=== PATIENT | male | born 1990 | race Caucasian/White ===

== ENCOUNTER 2018-03-10 15:52 | Inpatient (IN) | payer OTHER ==
[~2018-03-10] VITALS: Ht 180.3 cm; Wt 78.2 kg
[2018-03-10] MEDS ORDERED: ADVIL LIQUI-GE200 M1 PO (17:25)
--- NOTE | 2018-03-10 18:54 | ED PSYCHIATRIC COMPLAINT ---
History of Present Illness General Chief Complaint: ETOH/Drug Related Complaint Stated Complaint: DETOX FROM HEROINE ? SI Source: patient Exam Limitations: no limitations Vital Signs & Intake/Output Vital Signs & Intake/Output Vital Signs Date Time Temp Pulse Resp B/P B/P Pulse O2 O2 Flow FiO2 Mean Ox Delivery Rate 03/10 1557 97.1 82 18 163/92 98 Room Air Allergies Coded Allergies: NO KNOWN ALLERGIES (02/21/11) Reconcile Medications Ibuprofen (Advil Liqui-Gels) 200 MG CAPSULE 4 CAP PO DAILY PAIN/INFLAMMATION (Reported) Triage Note: 27 YEAR OLD MALE TO ER REQUEST ING HELP TO STOP USING IV HEROINE, LAST USED A COUPLE OF HOURS AGO, DENIES ETOH , BUT STATES THAT HE DOES BY [employer] OFF THE [address]RE[address] , LAST TOOK YESTERDAY. LAST DETOX [facility] A COUPLE OF MONTHS AGO , AND LAST WEEK WAS IN [place], AND WAS SUPOSSED TO GO TO [place] TODAY DROVE THERE TODAY AND THEY HAD NO BED FOR HIM. DENIES SI/HI Triage Nurses Notes Reviewed? yes HPI: Patient presents for evaluation of heroine and benzodiazepine abuse with depression. Patient states he needs help with his drug abuse because he feels it is slowly killing him. He admits to having problems with his liver and heart. He denies other drug abuse such as marijuana or cocaine and denies use of alcohol. He does complain of depression having lost his house and girlfriend recently. (Sonya WATERS,George Levy) Past History Travel History Traveled to [place] past 21 day No Medical History Any Pertinent Medical History? see below for history Neurological: NONE EENT: NONE Cardiovascular: NONE Respiratory: NONE Gastrointestinal: NONE Hepatic: hepatitis C Renal: NONE Musculoskeletal: NONE Psychiatric: NONE Endocrine: NONE Blood Disorders: NONE Cancer(s): NONE PATIENT ACCESS ASSOCIATE/Reproductive: NONE Surgical History Surgical History: non-contributory Psychosocial History What is your primary language Polish Tobacco Use: Current Daily Use Daily Tobacco Use Amount/Type: => 5 Cigarettes daily ETOH Use: denies use Illicit Drug Use: heroin, benzodiazepines Family History Hx Contributory? No (Sonya WATERS,George Levy) Review of Systems Review of Systems Constitutional: Reports: no symptoms. EENTM: Reports: no symptoms. Respiratory: Reports: no symptoms. Cardiovascular: Reports: no symptoms. GI: Reports: no symptoms. Genitourinary: Reports: no symptoms. Musculoskeletal: Reports: no symptoms. Skin: Reports: no symptoms. Neurological/Psychological: Reports: see HPI. Hematologic/Endocrine: Reports: no symptoms. Immunologic/Allergic: Reports: no symptoms. All Other Systems: Reviewed and Negative (George Hassan MD) Physical Exam Physical Exam General Appearance: SEE BELOW Neurological/Psychiatric: SEE BELOW Comments: Gen.: Well-nourished, well-developed, no acute respiratory distress. Head: Normocephalic, atraumatic. Eyes: Normal inspection bilaterally Ears: Normal inspection bilaterally Nose: Normal inspection Throat/mouth : Moist mucosa Neck: Supple, full range of motion, no goiter Heart: Regular rate and rhythm, no murmurs rubs or gallops Lungs: Clear to auscultation bilaterally with normal air entry Chest: Nontender Back: Normal range of motion Abdomen: Soft, nontender, nondistended, normal bowel sounds Extremities: Normal range of motion grossly, equal radial pulses, no cyanosis clubbing or edema Neurologic: Cranial nerves grossly intact, speech is clear Skin: warm and dry Psychiatric: Calm, cooperative, no apparent delusions or hallucinations, depressed affect SAD PERSONS Done? patient not suicidal (Sonya WATERS,George Levy) Progress Differential Diagnosis: DRUG ABUSE, DEPRESSION, ANXIETY, PERSONALITY DISORDER Plan of Care: Orders Procedure Date/time Status Continuous Observation Monitor 03/11 0700 Active Continuous Observation Monitor 03/11 0300 Active Continuous Observation Monitor 03/10 2300 Active Continuous Observation Monitor 03/10 190 Active Patient Safety Monitor 03/10 1852 Active URINE DRUG SCREEN FOR ER ONLY 03/10 1852 Active TSH REFLEX 03/10 1852 Complete ETHANOL 03/10 1852 Complete COMPREHENSIVE METABOLIC PANEL 03/10 1852 Complete CBC WITHOUT DIFFERENTIAL 03/10 1852 Complete ED CRISIS PSYCH CONSULT 03/10 1852 Active Current Medications Sig/John Start time Last Medication Dose Stop Time Status Admin Diltiazem HCl 10 MG ONCE ONE 03/10 1915 CAN (Cardizem) 03/10 1916 Laboratory Tests 03/10/18 2004: Anion Gap 11, Estimated GFR > 60, BUN/Creatinine Ratio 14.4, Glucose 97, Calcium 9.0, Total Bilirubin 0.4, AST 43, ALT 87 H, Alkaline Phosphatase 56, Total Protein 6.4, Albumin 3.8, Globulin 2.6, Albumin/Globulin Ratio 1.5, TSH &T3 & Free T4 Intrp 0.656, CBC w Diff NO MAN DIFF REQ, RBC 4.25 L, MCV 82.9, MCH 28.2 , MCHC 34.0, RDW 12.9, MPV 7.8, Gran % 47.8, Lymphocytes % 37.2, Monocytes % 10.6 H, Eosinophils % 3.9, Basophils % 0.5, Absolute Granulocytes 3.4, Absolute Lymphocytes 2.7, Absolute Monocytes 0.8 H, Absolute Eosinophils 0.3, Absolute Basophils 0, Serum Alcohol < 10.0 Comments: I feel the patient although not actively suicidal is at risk of self-harm given his admitted drug abuse, depression, the loss of his home and breakup with his girlfriend. 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 (Sonya WATERS,George Levy) Departure Departure Disposition: STILL A PATIENT Clinical Impression Primary Impression: Depression Secondary Impressions: Benzodiazepine abuse, Heroin abuse Referrals: Patient Has No Primary Care Dr (PCP/Family) Departure Forms: Customer Survey General Discharge Information (Sonya WATERS,George Levy) Departure Time of Disposition: 2139 Condition: Stable Psych Admission Note Psychiatric Admission: I have seen and evaluated KOLE GARCIA. I have also reviewed all the pertinent lab results and diagnostic results. KOLE GARCIA will be admitted to our inpatient Psychiatric unit for treatment and care. (Rios WATERS,Odell)
--- NOTE | 2018-03-10 20:13 | ED PSY CRISIS COLLATERAL NOTE ---
See Addendum Collateral Note Collateral Note Family/Inform/Jackie Contacts: 03/10/18 @ 7:30pm Crisis called and left a message for Pt's mother, Charu Oliver ([phone]). At this time, still awaiting a call back.
[2018-03-10 20:17] LABS: ABSOLUTE BASOPHIL COUNT 0 /CUMM (0.0-0.2); ABSOLUTE EOSINOPHIL COUNT 0.3 /CUMM (0.0-0.7); ABSOLUTE GRANULOCYTE CT 3.4 /CUMM (1.4-6.5); ABSOLUTE LYMPH COUNT 2.7 /CUMM (1.2-3.4); ABSOLUTE MONOCYTE COUNT 0.8 /CUMM (0.10-0.60); BASOPHIL % 0.5 % (0.0-2.0); EOSINOPHIL % 3.9 % (0-5); GRANULOCYTE % 47.8 % (42.2-75.2); HEMATOCRIT 35.3 % (42-52); MEAN CORPUSCULAR HGB 28.2 PG (27.0-31.0); MEAN CORPUSCULAR VOLUME 82.9 FL (80.0-94.0); MEAN PLATELET VOLUME 7.8 FL (7.4-10.4); PLATELET COUNT 214 /CUMM (130-400); RBC DISTRIBUTION WIDTH 12.9 % (11.5-14.5); RED BLOOD CELL CT 4.25 /CUMM (4.70-6.10); WHITE BLOOD CELL COUNT 7.2 /CUMM (4.8-10.8)
--- NOTE | 2018-03-10 21:14 | ED PSYCH CRISIS CONSULTATION ---
Crisis Consult Basic Assessment Date of Consult: 03/10/18 Responsible Person/Accompanied By: n/a Insurance Authorization: Insurance #1: Insurance name: KAMILLA RAYMUNDO Phone number: Policy number: [id number] Group number: Authorization number: ED Provider: Patient's ED Provider: George Hassan MD Primary Care Physician: Patient's PCP: Patient Has No Primary Care Dr PCP's Phone Number: Current Psychiatrist: none Chief Complaint: ETOH/Drug Related Complaint Patient's Quote: "I've had enough of everything, nothing is going right" Present Illness: Pt is a 27 year old male who presents in the ED asking for detox from Heroin and reports of depression. Pt reports multiple stressors in the past several weeks. Pt reports he lost his apartment and has been couch surfing with friends. He reports his drug use led to him losing his apartment. Pt also broke up with his girlfriend. Pt states that his car broke down and therefore he was also fired from his job. Pt reports SI in the past couple of days with the plan to overdose on drugs. Pt has a history of suicide attempts, last being in Summer 2016. Pt reports he used heroin to attempt suicide and ended up at [facility]. Pt denies SI/HI at this time, but reports he has been having ongoing thoughts for at least the last week. Pt reports feeling helpless, hopeless and trapped. Pt states he has limited supports as he has lost contact with most of his family, including his mother. Pt has 2 children, 7 year old twins, whom he currently has no contact with. Pt states that his depression is 9/10 and anxiety 9/10 with 10 being the most severe. Pt reports his mood is depressed, he is not sleeping, not eating and having a hard time concentrating. He denies AH/VH, but reports he has had AH in the past. Pt feels unable to agree to safety plan at this time. He reports feeling highly impulsive lately. Pt is an IV heroin user, using 3 bags per day. Pt also reports using Xanax (4mg) per day. He has been in substance abuse treatment on and off for several years. He reports that today, he was supposed to go to [facility] for a 45 day program, but a mistake was made and they gave his bed away. Pt states feeling very depressed about losing his spot. Pt was admitted to [facility] in 2010, but has no prior psychiatric inpatient hospitalizations. He is not currently in treatment and is not prescribed any psychotropic medication. Please see collateral note. C-SSRS completed: Pt identified the following risk factors: suicide attempt in lifetime, wishing to be in the past week, SI with method in the past week, recent loss (apartment, girlfriend, job), homelessless, feeling isolated or alone, hopelessness, helplessness, feeling trapped, feeling depressed, impulsive , substance use, severe anxiety, perceives himself as a burden, method for suicide (drugs), and family history of suicide (2nd cousin). Pt identified the following protective factors: identifies reasons for living, responsibility to others. Patient's Address: [address] [place] [address] Other Phone Number: Who Do You Live With? Other (see notes) (pt currently at diff friends ) Family/Informants Interviewed: Crisis spoke with pt's mother, Charu Oliver ) please see collaterall note Allergies - Coded Allergies: NO KNOWN ALLERGIES (02/21/11) Current Medications - Scheduled Medications Ibuprofen (Advil Liqui-Gels) 200 MG CAPSULE 4 CAP PO DAILY PAIN/INFLAMMATION (Reported) Entered as Reported by Catalina Pascual on 03/10/18 6374 Laboratory Results: Laboratory Tests 03/10/182003: Anion Gap 11, Estimated GFR > 60, BUN/Creatinine Ratio 14.4, Glucose 97, Calcium 9.0, Total Bilirubin 0.4, AST 43, ALT 87 H, Alkaline Phosphatase 56, Total Protein 6.4, Albumin 3.8, Globulin 2.6, Albumin/Globulin Ratio 1.5, TSH &T3 & Free T4 Intrp Pending, CBC w Diff NO MAN DIFF REQ, RBC 4.25 L, MCV 82.9, MCH 28.2, MCHC 34.0, RDW 12.9, MPV 7.8, Gran % 47.8, Lymphocytes % 37.2, Monocytes % 10.6 H, Eosinophils % 3.9, Basophils % 0.5, Absolute Granulocytes 3.4, Absolute Lymphocytes 2.7, Absolute Monocytes 0.8 H, Absolute Eosinophils 0.3, Absolute Basophils 0, Serum Alcohol < 10.0 Past History Past Medical History Neurological: NONE EENT: NONE Cardiovascular: NONE Respiratory: NONE Gastrointestinal: NONE Hepatic: hepatitis C Renal: NONE Musculoskeletal: NONE Psychiatric: NONE Endocrine: NONE Blood Disorders: NONE Cancer(s): NONE CHILD CARE LEADER/Reproductive: NONE Past Surgical History Surgical History: non-contributory Psychosocial History Strengths/Capabilities: Pt is seeking out help and willing to engage in treatment. Physical Limitations (Interventions): Pt reports Pericarditis and acute liver failure. Psychiatric Treatment History Psych Treatment Psychiatric Treatment Yes Inpatient Treatment Yes Outpatient Treatment Yes Location of Treatment [facility], outpatient as youth Reason for Treatment Depression, anxiety, poly substance use Dates of Treatment CPS - 2010, outpatient when 16 years old Response to Treatment Pt in the past has not followed through with aftercare Diagnosis by History: Anxiety d/o Depression Substance Use/Abuse History Drug Use/Abuse 1 Substances Used/Abused Yes Substance Used/Abused Benzodiazepines First Use 19 years old Last Used 2 days ago How much used/taken 4mg How often on and off since 19 years old For how long on and off since 19 years old Route of use orally Drug Use/Abuse 2 Substances Used/Abused Yes Substance Used/Abused Heroin First Use 19 years old Last Used noon today How much used/taken 3 bags How often daily For how long on and off since 19 years old Route of use Injecting Substance Abuse Treatment Substance Abuse Treatment Past Substance Abuse TX Yes Inpatient Treatment Yes Outpatient Treatment Yes Location of Treatment [facility] Reason for Treatment poly substance use Dates of Treatment [facility] last year. Response to Treatment pt has periods of sobriety Current Mental Status Mental Status Orientation: Person, Place, Situation Affect: Anxious, Depressed, Hopeless Speech: WNL Neuro-vegetative: Appetite Decreased, Energy Decreased, Sleep Disturbance Appearance Appearance- Dress/Hygiene: Pt is dressed in blue hosptial scrubs. He appears to have adequate hygeine. He has visable tattoos. Behaviors Thought Process: WNL Thought Content: WNL Memory: WNL Insight: Fair SI/HI Risk Assessment Past Suicidal Ideation/Attempts Yes Current Suicidal Ideation/Att No (not currently) Past Homicidal Ideation/Att: No Current Homicidal Ideation/Attempts No Degree of Intent: Plan (in past few days), Thoughts/No Intent Danger To: Self Gravely Disabled: Poor Impulse Control Risk Factors: access to lethal means, chronic/serious med cond., high anxiety/ distress, history of suicide atmpts, SA/MH hospitalized, substance abuse, isolate/no social support, poor impulse control, male, limited support Lethality Ratin PTSD Checklist PTSD Done? 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 Cohen Date Disposition Established: 03/10/18 Time Disposition Established: 2114 Plan for Disposition - Modality: Inpatient Psychiatry Facility: [facility] Rationale for Disposition: Crisis spoke with Dr. Cohen who agrees that pt meets criteria for inpatient hospitalization at this time. Pt reports feeling hopeless, helpless and trapped. He has recently experienced the loss of his apartment, job and girlfriend in the past month. He has experienced SI in the past week with the plan to use drug overdose. He has a history of suicide attempt summer 2016. Type of IP Admission: Voluntary Referrals Patient Has No Primary Care Dr (PCP/Family)
--- NOTE | 2018-03-10 21:48 | IP CRISIS DIAG ASSESS PSYCH ---
See Addendum Diagnostic Assessment Basic Assessment Insurance Authorization: Insurance #1: Insurance name: KAMILLA RAYMUNDO Phone number: Policy number: [id number] Group number: Authorization number: [facility] website was down on 03/10/18. This va underwriter tired to obtain auth several times. Primary Care Physician: Patient's PCP: Patient Has No Primary Care Dr PCP's Phone Number: Patient's Quote: "I've had enough of everything, nothing is going right" Present Illness: Pt is a 27 year old male who presents in the ED asking for detox from Heroin and reports of depression. Pt reports multiple stressors in the past several weeks. Pt reports he lost his apartment and has been couch surfing with friends. He reports his drug use led to him losing his apartment. Pt also broke up with his girlfriend. Pt states that his car broke down and therefore he was also fired from his job. Pt reports SI in the past couple of days with the plan to overdose on drugs. Pt has a history of suicide attempts, last being in Summer 2016. Pt reports he used heroin to attempt suicide and ended up at [facility]. Pt denies SI/HI at this time, but reports he has been having ongoing thoughts for at least the last week. Pt reports feeling helpless, hopeless and trapped. Pt states he has limited supports as he has lost contact with most of his family, including his mother. Pt has 2 children, 7 year old twins, whom he currently has no contact with. Pt states that his depression is 9/10 and anxiety 9/10 with 10 being the most severe. Pt reports his mood is depressed, he is not sleeping, not eating and having a hard time concentrating. He denies AH/VH, but reports he has had AH in the past. Pt feels unable to agree to safety plan at this time. He reports feeling highly impulsive lately. Pt is an IV heroin user, using 3 bags per day. Pt also reports using Xanax (4mg) per day. He has been in substance abuse treatment on and off for several years. He reports that today, he was supposed to go to [facility] for a 45 day program, but a mistake was made and they gave his bed away. Pt states feeling very depressed about losing his spot. Pt was admitted to [facility] in 2010, but has no prior psychiatric inpatient hospitalizations. He is not currently in treatment and is not prescribed any psychotropic medication. Please see collateral note. C-SSRS completed: Pt identified the following risk factors: suicide attempt in lifetime, wishing to be in the past week, SI with method in the past week, recent loss (apartment, girlfriend, job), homelessless, feeling isolated or alone, hopelessness, helplessness, feeling trapped, feeling depressed, impulsive , substance use, severe anxiety, perceives himself as a burden, method for suicide (drugs), and family history of suicide (2nd cousin). Pt identified the following protective factors: identifies reasons for living, responsibility to others. Patient's Address: [address] [place] [address] Other Phone Number: Who Do You Live With? Other (see notes) (pt currently at diff friends ) Feel Safe Where You Live? No Feel Safe in Your Relationship No If No, Please Elaborate: Pt has lost touch with most of his family Marital Status: single Do You Have Children? Yes Ages? 7 year old twins Primary Language? French Language(s) Spoken At Home: French Family/Informants Interviewed: Crisis spoke with pt's mother, Charu Oliver ( [phone]) please see collaterall note Allergies - Coded Allergies: NO KNOWN ALLERGIES (02/21/11) Current Medications - Scheduled Medications Ibuprofen (Advil Liqui-Gels) 200 MG CAPSULE 4 CAP PO DAILY PAIN/INFLAMMATION (Reported) Entered as Reported by Catalina Pascual on 03/10/18 2535 Consequences of Psych Med Use: Pt abuses Xanax, which he is not prescribed. Lab Results: Laboratory Tests 03/10/18 2004: Anion Gap 11, Estimated GFR > 60, BUN/Creatinine Ratio 14.4, Glucose 97, Calcium 9.0, Total Bilirubin 0.4, AST 43, ALT 87 H, Alkaline Phosphatase 56, Total Protein 6.4, Albumin 3.8, Globulin 2.6, Albumin/Globulin Ratio 1.5, TSH &T3 & Free T4 Intrp 0.656, CBC w Diff NO MAN DIFF REQ, RBC 4.25 L, MCV 82.9, MCH 28.2 , MCHC 34.0, RDW 12.9, MPV 7.8, Gran % 47.8, Lymphocytes % 37.2, Monocytes % 10.6 H, Eosinophils % 3.9, Basophils % 0.5, Absolute Granulocytes 3.4, Absolute Lymphocytes 2.7, Absolute Monocytes 0.8 H, Absolute Eosinophils 0.3, Absolute Basophils 0, Serum Alcohol < 10.0 Toxicology Screen Completed? No Results: positive Symptoms of Use: Pt reports using Heroin and Xanax Past History Past Medical History Medical History: Pericarditis, acute liver failure Past Surgical History Surgical History unobtainable Abuse/Trauma History Trauma History/Current Trauma: Denies Legal History Current Legal Status: none Have you ever been arrested? Yes Pending Court Dates: none reported Director Maternal Child none Psychosocial History Strengths/Capabilities: Pt is seeking out help and willing to engage in treatment. Physical Limitations (Interventions): Pt reports Pericarditis and acute liver failure. Psychiatric Treatment History Psych Treatment Psychiatric Treatment Yes Inpatient Treatment Yes Outpatient Treatment Yes Location of Treatment [facility], outpatient as youth Reason for Treatment Depression, anxiety, poly substance use Dates of Treatment CPS - 2010, outpatient when 16 years old Response to Treatment Pt in the past has not followed through with aftercare Diagnosis by History: Anxiety d/o Depression Risk Factors: access to lethal means, chronic/serious med cond., high anxiety/ distress, history of suicide atmpts, SA/MH hospitalized, substance abuse, isolate/no social support, poor impulse control, male, limited support Substance Use/Abuse History Drug Use/Abuse minimum 12mo Hx 1 Substances Used/Abused Yes Substance Used/Abused Heroin First Use 19 years old Last Used noon today How much used/taken 3 bags How often daily For how long on and off since 19 years old Route of use Injecting Drug Use/Abuse minimum 12mo Hx 2 Substances Used/Abused Yes Substance Used/Abused Benzodiazepines (Xanax) First Use 19 years old Last Used 2 days ago How much used/taken 4mg How often on and off since 19 For how long on and off since 19 Route of use orally Substance Abuse Treatment Substance Abuse Treatment Past Substance Abuse TX Yes Inpatient Treatment Yes Outpatient Treatment Yes Location of Treatment [place] [place] Reason for Treatment poly substance use Dates of Treatment [facility] last year. Response to Treatment pt has periods of sobriety Sexual History Sexually Active Yes Sexual Orientation Heterosexual Sexual Concerns: none reported Education History Highest Level of Education: high school/GED Preferred Learning Style: visual, auditory, experiential Current Mental Status Mental Status Orientation: Person, Place, Situation Affect: Anxious, Depressed, Hopeless Speech: WNL Neuro-vegetative: Appetite Decreased, Energy Decreased, Sleep Disturbance Appearance Appearance- Dress/Hygiene: Pt is dressed in blue hosptial scrubs. He appears to have adequate hygeine. He has visable tattoos. Behaviors Thought Process: WNL Thought Content: WNL Memory: WNL Insight: Fair SI/HI Risk Assessment - Minimum 6mo History- Past Suicidal Ideation/Attempts Yes Current Suicidal Ideation/Att No (not currently) Past Homicidal Ideation/Att: No Current Homicidal Ideation/Attempts No Degree of Intent: Plan (in past few days), Thoughts/No Intent Danger To: Self Gravely Disabled: Poor Impulse Control Risk Factors: access to lethal means, chronic/serious med cond., high anxiety/ distress, history of suicide atmpts, SA/MH hospitalized, substance abuse, isolate/no social support, poor impulse control, male, limited support Lethality Ratin Needs/Init TX Plan/Goals: Pt should particiapte in group, individual and family therapy and well as meet with the psychiatrist. 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
[2018-03-11] VITALS (12 sets, daily range): BP systolic 89–153; BP diastolic 57–89
--- NOTE | 2018-03-11 11:15 | Cons- Medical ---
General Information and HPI Consulting Request Date of Consult: 03/11/18 Requested By: Rodrigo Mcdonald MD Reason for Consult: Medical H & P Source of Information: patient, old records History of Present Illness: 27-year-old male past medical history of IV drug abuse, questionable hypertension and hepatitis C he was here with depression and requesting opiate detox. Patient says he was hospitalized once in his life for elevated liver enzymes and was diagnosed with hepatitis C he said he was subsequently incarcerated and his viral load was very low. He is interested in pursuing treatment for hep C once he is discharged. He denies nausea vomiting diarrhea, no bright red blood per rectum, no hematemesis, no melena, no chest pain,no shortness of breath and no complaints. He says he's been diagnosed with hypertension in the past and was using clonidine when necessary but he hasn't been using anything consistently. Allergies/Medications Allergies: Coded Allergies: NO KNOWN ALLERGIES (02/21/11) Home Med List: Ibuprofen (Advil Liqui-Gels) 200 MG CAPSULE 4 CAP PO DAILY PAIN/INFLAMMATION (Reported) Current Medications: Current Medications Sig/John Start time Last Medication Dose Route Stop Time Status Admin Acetaminophen 650 MG Q6P PRN 03/11 1015 AC PO Acetaminophen 500 MG Q6P PRN 03/10 2230 DC PO Al Hydroxide/Mg 30 ML Q4-6 PRN PRN 03/11 1015 AC Hydroxide PO Baclofen 10 MG Q6P PRN 03/11 1015 AC 03/11 PO 1108 Benztropine Mesylate 1 MG Q6P PRN 03/11 1015 AC PO Benztropine Mesylate 1 MG Q6P PRN 03/11 1015 AC IM Clonidine 0.1 MG Q6P PRN 03/11 1015 AC PO Clonidine 0.1 MG TID 03/11 1011 AC PO Clonidine 0.1 MG .STK-MED ONE 03/11 0043 DC PO 03/11 0044 Clonidine 0.1 MG Q6-PRN PRN 03/10 2230 DC 03/11 PO 0044 Dicyclomine HCl 20 MG Q6P PRN 03/11 1015 AC PO Diltiazem HCl 10 MG ONCE ONE 03/10 191 CAN IV PUSH 03/10 191 Gabapentin 300 MG Q6P PRN 03/11 1015 AC PO Haloperidol 5 MG Q6P PRN 03/11 1015 AC PO Haloperidol 5 MG Q6P PRN 03/11 1015 AC IM Hydroxyzine HCl 25 MG Q6-PRN PRN 03/10 2245 DC PO Loperamide HCl 2 MG Q3P PRN 03/10 2230 AC PO Lorazepam 2 MG Q6P PRN 03/11 1015 AC IM Lorazepam 2 MG Q2 HRS NEEDED PRN 03/10 2230 DC PO Lorazepam 1 MG Q2 HRS NEEDED PRN 03/10 223 DC 03/11 PO 0953 Magnesium Hydroxide 30 ML AT BEDTIME NEED.. 03/11 1015 AC PO Multivitamins 1 TAB DAILY 03/11 1011 AC PO Trazodone HCl 50 MG AT BEDTIME NEED.. 03/11 101 AC PO Review of Systems Review of Systems Constitutional: Denies: no symptoms, chills, diaphoresis, fever, malaise. Cardiovascular: Denies: no symptoms, chest pain, edema, orthopena. Respiratory: Denies: no symptoms, cough, hemoptysis, orthopnea. GI: Denies: no symptoms, bloating, constipation, diarrhea. Genitourinary: Denies: no symptoms, discharge, dysuria, frequency. Musculoskeletal: Denies: no symptoms, back pain. 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 Exam & Diagnostic Data Last 24 Hrs of Vital Signs/I&O Vital Signs Date Time Temp Pulse Resp B/P B/P Pulse O2 O2 Flow FiO2 Mean Ox Delivery Rate 03/11 1008 98.1 68 137/71 03/11 0855 96.5 67 111/63 03/11 0851 96.5 67 111/63 03/11 0414 65 89/58 03/11 0203 52 95/58 03/11 0044 59 128/57 03/11 0039 98.2 59 128/57 03/11 0007 98.2 59 128/57 03/10 2204 98.1 67 18 126/71 98 03/10 2203 97.4 67 18 126/71 98 03/10 1557 97.1 82 18 163/92 98 Room Air Intake & Output 03/11 1600 03/11 0800 03/11 0000 Intake Total Output Total Balance Patient 78.245 kg Weight Physical Exam General Appearance: well developed/nourished, no apparent distress, alert, awake Head: atraumatic, normal appearance Eyes: Bilateral: normal appearance, PERRL, EOMI. Ears, Nose, Throat: normal pharynx, normal ENT inspection, hearing grossly normal Neck: normal inspection, supple, full range of motion Respiratory: normal breath sounds, chest non-tender, no respiratory distress Cardiovascular: regular rate/rhythm Gastrointestinal: normal bowel sounds, soft, non-tender, no organomegaly Back: normal inspection, normal range of motion Extremities: normal inspection, normal capillary refill, normal range of motion, no edema Neurologic/Psych: no motor/sensory deficits, awake, alert, oriented x 3, normal gait Other Physical Findings: A shunt is awake alert oriented, cranial nerves III-12 are intact, motor and sensory grossly are intact. No cerebellar signs and reflexes are 2+ and symmetric, gait is normal. Patient has multiple tattoos and in his left upper extremity in the antecubital fossa there is one way and that slightly thickened and scarred but no evidence of active infection. Last 24 Hrs of Labs/Aryan: Laboratory Tests 03/10/182206: Urine Opiates Screen > 4000.00 H, Methadone Screen 574 H, Barbiturate Screen < 60, Ur Phencyclidine Scrn < 6.00, Amphetamines Screen < 100, U Benzodiazepines Scrn < 85, Urine Cocaine Screen > 1000 H, Urine Cannabis Screen < 5.00 03/10/182003: Anion Gap 11, Estimated GFR > 60, BUN/Creatinine Ratio 14.4, Glucose 97, Calcium 9.0, Total Bilirubin 0.4, AST 43, ALT 87 H, Alkaline Phosphatase 56, Total Protein 6.4, Albumin 3.8, Globulin 2.6, Albumin/Globulin Ratio 1.5, TSH &T3 & Free T4 Intrp 0.656, CBC w Diff NO MAN DIFF REQ, RBC 4.25 L, MCV 82.9, MCH 28.2 , MCHC 34.0, RDW 12.9, MPV 7.8, Gran % 47.8, Lymphocytes % 37.2, Monocytes % 10.6 H, Eosinophils % 3.9, Basophils % 0.5, Absolute Granulocytes 3.4, Absolute Lymphocytes 2.7, Absolute Monocytes 0.8 H, Absolute Eosinophils 0.3, Absolute Basophils 0, Serum Alcohol < 10.0 Assessment/Plan Assessment/Plan 27-year-old male past medical history of hepatitis C, active tobacco use and questionable hypertension who is here with depressive symptoms and requesting opiate detox. U tox is positive for cocaine and opiates and that treatment would be per psych. I will order nicotine patch as requested by the patient. His ALT is mildly elevated at this point and he doesn't need any active intervention. Please give him a referral to the [facility] practice clinic at [address] [place] [address] in [place] on discharge for primary care and hep C follow- up. Problem List: 1. Polysubstance abuse 2. Heroin abuse 3. Depression Consult Acknowledgment - Thank you for your consult request.
--- NOTE | 2018-03-11 13:06 | SOCIAL WORKER SOCIAL HX PSYCH ---
Social History Basic Assessment Insurance Authorization: Insurance #1: Insurance name: [employer] Phone number: Policy number: [id number] Group number: Authorization number: Curr Source of Income/Entitlements: unemployment Primary Care Physician: Patient's PCP: Patient Has No Primary Care Dr PCP's Phone Number: Present Problem: Pt is a 27 year old male who presents in the ED asking for detox from Heroin and reports of depression. Pt reports multiple stressors in the past several weeks. Pt reports he lost his apartment and has been couch surfing with friends. He reports his drug use led to him losing his apartment. Pt also broke up with his girlfriend. Pt states that his car broke down and therefore he was also fired from his job. Pt reports SI in the past couple of days with the plan to overdose on drugs. Pt has a history of suicide attempts, last being in Summer 2016. Pt reports he used heroin to attempt suicide and ended up at [facility]. Pt denies SI/HI at this time, but reports he has been having ongoing thoughts for at least the last week. Pt reports feeling helpless, hopeless and trapped. Pt states he has limited supports as he has lost contact with most of his family, including his mother. Pt has 2 children, 7 year old twins, whom he currently has no contact with. Pt states that his depression is 9/10 and anxiety 9/10 with 10 being the most severe. Pt reports his mood is depressed, he is not sleeping, not eating and having a hard time concentrating. He denies AH/VH, but reports he has had AH in the past. Pt feels unable to agree to safety plan at this time. He reports feeling highly impulsive lately. Pt is an IV heroin user, using 3 bags per day. Pt also reports using Xanax (4mg) per day. He has been in substance abuse treatment on and off for several years. He reports that today, he was supposed to go to [place] for a 45 day program, but a mistake was made and they gave his bed away. Pt states feeling very depressed about losing his spot. Pt was admitted to [facility] in 2010, but has no prior psychiatric inpatient hospitalizations. He is not currently in treatment and is not prescribed any psychotropic medication. Primary Language? Lithuanian Language(s) Spoken At Home: Lithuanian Living Situation Other Living Arrangement: Homeless Feel Safe Where You Are Living Yes ("i feel safe but im homeless") Feel Safe in Relationships? 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 Yes Explain: " My relationship with my parents wasnt great, we still barely talk now" Mother's Age (Current/): 52 Relationship w/Mother: "there is no relationship" Father's Age (Current/): 45 () Relationship w/Father: "he but even before that we never had a relationship" Any Sibling(s)? Yes Sibling's Gender(s)/Age(s): male Sibling 1: (25) Relationship w/Sibling(s): "ok" Relationship w/Friends: "i dont have any" Family Psych/Sub Abuse/Add Hx: "i dont remeber" Abuse/Trauma History Trauma History/Current Trauma: Denies History of Trauma/Abuse Treatment? No Abuse/Trauma Treatment: None Legal History Legal Guardian/Address/Phone: Self Current Legal Status: none Pending Court Dates: "no" Have you ever been arrested Yes Number of Arrests: 7 Hx of Juvenile Legal Charges? Yes If Yes: "criminal mischeif" Hx of Adult Legal Charges? Yes If Yes: "i dont rmeber but i went to long-term in 2014" List/Date Most Recent Lgl Chgs: Arrested before admission Chgs/Dts/Incarcerations/Sentnc Robbery, assult, burglary Civil Proceedings: "None" Domestic Relations Court: "no" Child Protective Serv Involvmnt "no" Debone Supervisor none Psychosocial History Primary Support System: sibling(s) ("Maybe my brother") Strengths/Capabilities: Pt is seeking out help and willing to engage in treatment. Weaknesses: Pt has very small support system, and minimizes the severity of current situation Physical Limitations (Interventions): Pt reports Pericarditis and acute liver failure. Last Physical: 1 week ago History of Seizures? No History of Blackouts? No ADL Limitations: None [place]/Social/Peer Relations "i dont have any" Meaningful Activities: "i watch sports" Childhood Hinduism: no restoration stated Current Mormonism Affiliation: no restoration stated Is Spirituality Important to You? No Patient's Ethnicity: Zambian Cultural/Ethnic Issues: None Are There Developmental Issues? No Milestones Achieved: fine motor, gross motor Psychiatric Treatment History Psych Treatment Inpatient Treatment Yes Outpatient Treatment Yes Location of Treatment [facility], outpatient as youth Reason for Treatment Depression, anxiety, poly substance use Dates of Treatment CPS - 2010, outpatient when 16 years old Response to Treatment Pt in the past has not followed through with aftercare Treatment of Prior Episodes: Prior CPS admissions Diagnosis: Anxiety d/o Depression Risk Factors: access to lethal means, chronic/serious med cond., high anxiety/ distress, history of Violence, history of suicide atmpts, SA/MH hospitalized, substance abuse, isolate/no social support, poor impulse control, male, limited support Substance Use/Abuse History Drug Use/Abuse:Min 12 mo hx Substance Used/Abused Benzodiazepines (Xanax) First Use 19 years old Last Used 2 days ago How much used/taken 4mg How often on and off since 19 For how long on and off since 19 Route of use orally Have Had Periods of Sobriety? Yes (18 months) Explain: "i was sober 18 months then i went back to getting high" Relapse History? Yes Explain: "i relapsed after my 18 months sober" Have You Ever Attended AA? No Do You Attend AA Currently? No Do You Have a Sponsor? No Other Community Resources Used: NA Symptoms of Use: Pt reports using Heroin and Xanax Substance Abuse Treatment Substance Abuse Treatment Inpatient Treatment Yes Outpatient Treatment Yes Location of Treatment [facility] Reason for Treatment poly substance use Dates of Treatment [place] last year. Response to Treatment pt has periods of sobriety Sexual History Sexually Active Yes # of partners 0 ("i dont know") Sexual Orientation Heterosexual Use of Protection No Sexual Concerns: none reported Education History Highest Level of Education: some college Highest Grade Completed: HS diploma Vocational Year Completed: None Number of College Years: 1 College Degree/Major: None Other Degree(s): None Preferred Learning Style: visual, auditory, experiential HX of Learning Difficulties: None reported Barriers to Learning: None reported Special Communication Needs: None reported Employment History Employment Unemployed Not in Labor Force: "not working" Vocation/Occupational Hx: "I had 1 job a few years ago" No. 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 No Current Mental Status Mental Status Orientation: Person, Place, Situation Affect: Anxious, Depressed, Hopeless Speech: WNL Neuro-vegetative: Appetite Decreased, Energy Decreased, Sleep Disturbance Appearance Appearance- Dress/Hygiene: Pt is dressed in blue hosptial scrubs. He appears to have adequate hygeine. He has visable tattoos. Behaviors Thought Process: WNL Thought Content: WNL Memory: WNL Insight: Fair SI/HI Risk Assessment Past Suicidal Ideation/Attempts Yes Current Suicidal Ideation/Att No (not currently) Past Homicidal Ideation/Att: No Current Homicidal Ideation/Attempts No Degree of Intent: Plan (in past few days), Thoughts/No Intent Danger To: Self Gravely Disabled: Poor Impulse Control Risk Factors: Hx of suicide attempt(s), Hx of violence, Isolated/no social suppor, Lack of concern outcome, Male, Poor impulse control, Substance Abuse Lethality Ratin - Conclusion and Recommendations for treatment - and discharge planning Summary: Pt minimizes severity of opiate dependancy and HX of legal troubles. Pt is a poor historian and tends to change information depending on the interviewer. Pt has a very small support system and does not communicate with any family memeber at the moment.
--- NOTE | 2018-03-11 14:52 | SOCIAL WORKER PROG NOTE PSYCH ---
Social Work Progress Note Progress Note Pt admits he is not suicidal, he states I have nothing and no place to go "I lost everything" i.e. apartment, relationships, job. Pt states he wants to go to rehab for drug addiction. Pt states he had been to [place] a few times while he was under 26 and had private insurance thru his parents. Pt complains of feeling withdrawl symptoms. Pt exhibits lack of insight and sensationalizing some of the things that led him to be here.
--- NOTE | 2018-03-11 16:03 | CPS PROVIDER INIT ASMT PSYCH ---
Psychiatric Admission Field Artillery Cannoneer's Note Reviewed: Yes Patient Seen and Examined: Yes Identifying Information: 27 yo WM admitted 03/10/18 on a voluntary basis, referred by ER. Chief Complaint: Substance use, multiple losses, SI. Reaction to Hospitalization: "I feel safe." Complains of withdrawal. History of Present Illness Onset of Illness: About 2 weeks. Circumstances Leading to Admission: Reports he recently had a "string of bad luck the last couple of weeks, due to drugs. I'm sick of it." Reports he completed detox at [facility] last week. States he presented to [facility] for admission but lost bed there. Claims they destroyed his Suboxone prescription as "contraband." Reports he lost apartment, car, girlfriend and job. Problem(s) Justifying Need for Admission: SI, substance withdrawal. Other HPI: Three week hx of: poor sleep poor appetite (claims to have not eaten for 4 days straight) very poor energy Reports he lost 27#/1 month. Case and treatment plan discussed in team meeting. Staff reports that the patient is denying SI. May have some withdrawal symptoms. Quiet. Past Psychiatric History Past Diagnosis(es)- if any: Paris I: Substance-induced mood disorder, depressed. Opiate dependence. Opiate withdrawal. Alcohol abuse. Paris II: Personality disorder, NOS, with borderline anti-social traits. Paris III: None. Paris IV: Relationship issues. Financial issues. Paris V: GAF on admission was 30, GAF on discharge was 60. Past Precipitating Factors- if any: Evaluation and treatment of suggestive reports of depression with suicidal thoughts as well as detox from opiates. - Include inpatient and outpatient treatment Treatment History: Not in outpatient tx. CPS admit in 2010. History of Suicide Attempts or Gestures Overdose with heroin in 2013. Substance Abuse History: Tobacco at 1 ppd. No alcohol. MJ 1x/week. Cocaine 1x/week. Heroin 10-15 bags/day. Last heroin use yesterday. Reports using 4-[address] benzodiazepines a day. Seeing Dr. Hernandez for Suboxone. Detoxed last week at [facility]. Prior detox at [facility]. ?treatment at [facility] and [facility]. Urine drug screen 03/10/18 positive for cocaine, methadone and op/morphine, negative for buprenorphine. Allergies: Coded Allergies: NO KNOWN ALLERGIES (02/21/11) Home Med List: Suboxone 04/01 b.i.d. Reports he lats took it Thursday or Thursday. - Include any medical condition(s) that may - impact the patient's recovery/remission Past Medical History: Hx pericarditis and acute liver failure, per crisis note. 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 Substance Use: Mother alcohol. Father crack. Father from cocaine toxicity when patient was 18 yo. Father had VA/MVA. Suicides: A maternal male second cousin with bone cancer suicided by GSW. Social History Living Situation: Homeless. Was living in [place] but gave up apartment 3 weeks ago. Significant Relationships (family/friends): Reports father from cocaine toxicity, myocardial infarction and motor vehicle accident when the patient was 18 years old. Reports mother from pancreatic cancer 2 years ago. trail construction worker documented having a conversation with the patient's mother. Has 25 yo brother. from . Patient has 7-year-old twin daughters who live in [place] with their mother. Girlfriend of 5 years broke up with patient a couple of days ago. Education: 1 year at [employer]. 1 semester at [employer]. 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 Legal: Not asked. Past arrest(s) per crisis admission note. Healthly Behaviors Screening Tobacco Screening Tobacco Use from ED Docu: Current Daily Use Daily Tobacco Use Amount/Type: => 5 Cigarettes daily - If tobacco counseling indicated - the following topics are required. - #1 Recognizing dangerous situations. - #2 Coping Skills. - #3 Basic information about quitting. Status of Tobacco Cessation Counseling: #1, #2 AND #3 Completed Cessation Med Status Nicotine Patch Ordered Alcohol Screening - ETOH screen POS if BAL >=80 or Audit-C>= M4/F3 Audit-C Score from Diag Assess: 2 Blood Alcohol Level: Laboratory Tests 03/10 2004 Toxicology Serum Alcohol (<10 MG/DL) < 10.0 Alcohol Use Screening Results: Neg per Audit C &/or BAL - If ETOH counseling indicated - the following topics are required. - #1 Express concern about the patient's - drinking at unhealthy levels, include informing - of national norms for moderate drinking: - men <= 14 drinks/week, max 4 drinks/occasion - women <= 7 drinks/week, max 3 drinks/occasion - #2 Providing feedback, including linking alcohol to - negative physical effects (liver injury, hypertension) - negative emotional effects (relationship problems and - depression) - negative occupational consequences (reduced work - performance) - #3 Advising the patient to abstain from alcohol or - to drink below national norms for moderate drinking - (as listed above). Status of ETOH Use Counseling: N/A B/C NO ETOH Use Metabolic Screening - Screen if on a Neuroleptic Medication - Metabolic screening should include: - Blood Pressure, BMI, Glucose or Hgb A1c, & a - Lipid profile from within the past 365 days. Metabolic Screening ([x]) Not Applicable, patient not on a neuroleptic. OR () Patient on a neuroleptic(s) . Enter below results for Hemoglobin A1C, and lipid panel if obtained during the last 365 days. BMI: 24.000 Blood Pressure: 123/71 Laboratory Results From [facility] (If applicable): Exam and Plan Mental Status Examination Ambulation Status: Gait WNL. Appearance: Dressed in T-shirt and pants, bearded, has multiple tattoos. Attitude towards examiner: Calm, polite and cooperative. Psychomotor activity: Jiggling legs. Behavior: Unremarkable. Quality of speech: Normal in volume, rate and tone. Affect: Calm and depressed. Mood: Reports feeling hopeless and depressed. Rates sad mood 7/10 and anxiety like 7/10. Feels helpless, worthless and guilty. Suicidal Ideation: Denies active suicidal ideation. Endorses passive suicidal ideation. Gives a safety promise for here. Homicidal Ideation: Denies homicidal ideation. Hallucinations: Denies auditory and visual hallucinations. Paranoid/Delusional Material: Denies paranoid ideation and magical dennis. Difficulties with thought organization: None. Insight: Fair. Judgment: Poor. Orientation: Oriented 3 except gives the date as 03/10/18. Cognition: Grossly intact. Memory Function: Grossly intact. Estimate of intellectual functioning: Average. Assets/Strengths Patient Identified Assets/Strengths: "I'm not sure." Impression/Plan Impression and Plan: The patient is a 27-year-old white male who reports multiple losses. He presented with worsening mood and suicidal ideation in the context of substance use and reportedly having been turned away from [facility]. - Include all active medical diagnosis that require tx DSM 5 Diagnosis(es): Substance-induced mood disorder. Opioid use disorder. Cocaine use disorder. Benzodiazepine use disorder. - Initial Tx Plan for Active Psych & Medical Conditions Treatment Plan: The patient will be monitored on the unit for safety, opiate and benzodiazepine withdrawal and mood disorder. We will treat the patient with a clonidine, baclofen, Bentyl and Suboxone detox. CIWA-triggered Ativan is available for benzodiazepine withdrawal. Additional information is needed from collaterals. Anticipate once clinically stable, that the patient will be discharged to an inpatient rehab if possible, otherwise to an IOP. - Factors that would help patient function - in a less restrictive setting. Factors: Not suicidal.
--- NOTE | 2018-03-12 08:29 | SOCIAL WORKER PROG NOTE PSYCH ---
Social Work Progress Note Progress Note Met with Yair this morning. He stated he has no SI/HI, no AH/VH, he wants a rehab. Signed CARITO's for [facility], [facility], Sherrie. He reports he is homeless. He has no one he can stay with. He said he has no one he can do a family meeting with. He is worried [facility] may have a warrant - checked the Judical CT site no warrant. He stated his last arrest was January 2018 for [place] [address], he had a recent incident where he stole more things and is concerned. He agreedt o [facility]. He is refusing to call 211 for a retirement bed. Informed him to call [facility] admissions to do a phone screening (Fax clinical AFTER he gets on waitlist). He states he wants to "change his life and stay sober." Faxed clinical to Jeremi Acevedo [place] and [facility] and [facility].
[2018-03-12 08:31] VITALS: BP 128/66
[2018-03-12 08:33] VITALS: BP 128/66
[2018-03-12 12:05] VITALS: BP 118/65
[2018-03-12 12:15] VITALS: BP 118/65
--- NOTE | 2018-03-12 16:07 | CP SOUTH PROGRESS NOTE PSYCH ---
Psych (Inpt) Progress Note Progress Note Include the following elements, when applicable: Involvement in the active treatment of the patient with behavioral observations of the patient and the patient's response to the treatment. Review of the ongoing treatment process in the context of the treatment plan. Indication of how multi-disciplinary staff members are carrying out the treatment plan. Plans for future interventions and recommendations for revision of the treatment plan. Liaison with other physicians/providers. Progress Note: Case and treatment plan discussed in team meeting. Staff reports that the patient is denying SI. The patient was suspected of drug use with a peer on the unit last evening. Both were placed in scrubs, their rooms were searched and they had drug screens. There is no clear evidence that this patient used. 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 Patient seen at 11:37 a.m. States he is okay. Jiggling legs. Denies having used drugs. I asked him to clarify conflicting data about mother. States mother is not in his life but is dying on the streets. Affect is calm and blunted. Reports mood is very anxious. Agrees to increase prn gabapentin to 600 mg. "I need a program." Anxiety ~9/10. Sad 7/10. Feels hopeless, helpless, worthless and guilty. Denies active and passive SI, HI, AH, VH and PI. Appetite: fair. Energy: poor. IMPRESSION: Slow progress. Continue present treatment plan. I have ordered a (rapid) Suboxone taper that will end on Thursday morning. Anticipate discharge on Thursday. Rehab placement remains problematic.
[2018-03-12 16:20] VITALS: BP 121/68
[2018-03-12 20:33] VITALS: BP 137/77
[2018-03-13] VITALS (8 sets, daily range): BP systolic 118–142; BP diastolic 54–72
--- NOTE | 2018-03-13 11:20 | CP SOUTH PROGRESS NOTE PSYCH ---
Psych (Inpt) Progress Note Progress Note Include the following elements, when applicable: Involvement in the active treatment of the patient with behavioral observations of the patient and the patient's response to the treatment. Review of the ongoing treatment process in the context of the treatment plan. Indication of how multi-disciplinary staff members are carrying out the treatment plan. Plans for future interventions and recommendations for revision of the treatment plan. Liaison with other physicians/providers. Progress Note: Pt notes "I don't need anything; I don't have anything to talk about." Denies SI or HI. Denies psychotic sx. Current Medications Sig/John Start time Last Medication Dose Route Stop Time Status Admin Acetaminophen 650 MG Q6P PRN 03/11 1015 AC PO Al Hydroxide/Mg 30 ML Q4-6 PRN PRN 03/11 1015 AC Hydroxide PO Baclofen 10 MG Q6P PRN 03/11 1015 AC 03/13 PO 0923 Benztropine Mesylate 1 MG Q6P PRN 03/11 1015 AC PO Benztropine Mesylate 1 MG Q6P PRN 03/11 1015 AC IM Buprenorphine/ 1 TAB BID@0800,1700 03/13 1700 AC Naloxone SL 03/15 0801 Buprenorphine/ 2 TAB BID@0800,1700 03/12 1700 DC 03/13 Naloxone SL 03/13 0801 0753 Clonidine 0.05 MG BID 03/14 0900 AC PO 03/15 0901 Clonidine 0.05 MG FOUR TIMES A DAY 03/12 1800 AC 03/13 PO 03/13 2355 0015 Clonidine 0.05 MG Q6P PRN 03/12 1615 AC PO Clonidine 0.1 MG Q6P PRN 03/11 1015 DC PO Clonidine 0.1 MG TID 03/11 1011 DC 03/12 PO 1424 Dicyclomine HCl 20 MG Q6P PRN 03/11 1015 AC PO Gabapentin 600 MG Q6P PRN 03/12 1145 AC PO Gabapentin 300 MG Q6P PRN 03/11 1015 DC 03/11 PO 2138 Haloperidol 5 MG Q6P PRN 03/11 1015 AC PO Haloperidol 5 MG Q6P PRN 03/11 1015 AC IM Loperamide HCl 2 MG Q3P PRN 03/10 2230 AC PO Lorazepam 2 MG Q2 HRS NEEDED PRN 03/11 1330 AC PO Lorazepam 1 MG Q2 HRS NEEDED PRN 03/11 1330 AC PO Lorazepam 2 MG Q6P PRN 03/11 1015 AC IM Magnesium Hydroxide 30 ML AT BEDTIME NEED.. 03/11 1015 AC PO Multivitamins 1 TAB DAILY 03/11 1011 AC 03/13 PO 0922 Nicotine 14 MG DAILY 03/11 1115 AC 03/13 TOP 0752 Trazodone HCl 50 MG AT BEDTIME NEED.. 03/11 1015 AC PO Laboratory Tests 03/11 03/10 2158 2207 Toxicology Urine Opiates Screen (>2000 NG/ML) > 4000.00 H > 4000.00 H Buprenorphine & Metab (NEGATIVE) NEGATIVE Methadone Screen (>300 NG/ML) 127 574 H Barbiturate Screen (>200 NG/ML) < 60 < 60 Ur Phencyclidine Scrn (>25 NG/ML) < 6.00 < 6.00 Amphetamines Screen (>1000 NG/ML) < 100 < 100 U Benzodiazepines Scrn (>200 NG/ML) < 85 < 85 Urine Cocaine Screen (>300 NG/ML) 235 > 1000 H Urine Cannabis Screen (>50 NG/ML) < 5.00 < 5.00 03/10 2004 Chemistry Sodium (137 - 145 mmol/L) 139 Potassium (3.5 - 5.1 mmol/L) 4.2 Chloride (98 - 107 mmol/L) 98 Carbon Dioxide (22 - 30 mmol/L) 30 Anion Gap (5 - 16) 11 BUN (9 - 20 mg/dL) 13 Creatinine (0.7 - 1.2 mg/dL) 0.9 Estimated GFR (>60 ml/min) > 60 BUN/Creatinine Ratio (7 - 25 %) 14.4 Glucose (65 - 99 mg/dL) 97 Calcium (8.4 - 10.2 mg/dL) 9.0 Total Bilirubin (0.2 - 1.3 mg/dL) 0.4 AST (17 - 59 U/L) 43 ALT (21 - 72 U/L) 87 H Alkaline Phosphatase (< 127 U/L) 56 Total Protein (6.3 - 8.2 g/dL) 6.4 Albumin (3.5 - 5.0 g/dL) 3.8 Globulin (1.9 - 4.2 gm/dL) 2.6 Albumin/Globulin Ratio (1.1 - 2.2 %) 1.5 TSH &T3 &Free T4 Intrp (0.27 - 4.20 uIU/mL) 0.656 Hematology CBC w Diff NO MAN DIFF REQ WBC (4.8 - 10.8 /CUMM) 7.2 RBC (4.70 - 6.10 /CUMM) 4.25 L Hgb (14.0 - 18.0 G/DL) 12.0 L Hct (42 - 52 %) 35.3 L MCV (80.0 - 94.0 FL) 82.9 MCH (27.0 - 31.0 PG) 28.2 MCHC (33.0 - 37.0 G/DL) 34.0 RDW (11.5 - 14.5 %) 12.9 Plt Count (130 - 400 /CUMM) 214 MPV (7.4 - 10.4 FL) 7.8 Gran % (42.2 - 75.2 %) 47.8 Lymphocytes % (20.5 - 51.1 %) 37.2 Monocytes % (1.7 - 9.3 %) 10.6 H Eosinophils % (0 - 5 %) 3.9 Basophils % (0.0 - 2.0 %) 0.5 Absolute Granulocytes (1.4 - 6.5 /CUMM) 3.4 Absolute Lymphocytes (1.2 - 3.4 /CUMM) 2.7 Absolute Monocytes (0.10 - 0.60 /CUMM) 0.8 H Absolute Eosinophils (0.0 - 0.7 /CUMM) 0.3 Absolute Basophils (0.0 - 0.2 /CUMM) 0 Toxicology Serum Alcohol (<10 MG/DL) < 10.0 Vital Signs Date Time Temp Pulse Resp B/P B/P Pulse O2 O2 Flow FiO2 Mean Ox Delivery Rate 03/13 0929 97.8 68 118/54 03/13 0922 68 118/54 03/13 0805 97.8 68 118/54 03/13 0015 97.4 55 18 137/77 03/12 2033 97.4 55 137/77 03/12 1620 64 121/68 03/12 1620 64 121/68 03/12 1424 96 118/65 03/12 1215 96 118/65 03/12 1205 96 118/65 MSE Appearance: as stated age Speech : nl rate, rhythm, volume and prosody Behavior: cooperative Motor: no psychomotor agitation or retardation Mood : fine Affect : non-labile, anxious, irritable, appropriate, constricted Thought process: linear and goal directed Thought content : no delusions or paranoia Perceptions: denied AVHs, denied SI or HI Insight: poor Judgment: poor A/P: Pt with unspecified depression with improved mood. Continue current medication regimen Encourage integration into the milieu
[2018-03-14] VITALS (8 sets, daily range): BP systolic 116–140; BP diastolic 55–71
--- NOTE | 2018-03-14 11:01 | CP SOUTH PROGRESS NOTE PSYCH ---
Psych (Inpt) Progress Note Progress Note Include the following elements, when applicable: Involvement in the active treatment of the patient with behavioral observations of the patient and the patient's response to the treatment. Review of the ongoing treatment process in the context of the treatment plan. Indication of how multi-disciplinary staff members are carrying out the treatment plan. Plans for future interventions and recommendations for revision of the treatment plan. Liaison with other physicians/providers. Progress Note: Pt notes that he is "alright" today. Did want to discuss a SE he had with hadol at [facility] ?years ago, erections (?priapism). Redirected. Requested nicotine gum. Denies SI or HI. Current Medications Sig/John Start time Last Medication Dose Route Stop Time Status Admin Acetaminophen 650 MG .STK-MED ONE 03/13 2053 DC PO 03/13 205 Acetaminophen 650 MG Q6P PRN 03/11 1015 AC PO Al Hydroxide/Mg 30 ML Q4-6 PRN PRN 03/11 1015 AC Hydroxide PO Baclofen 10 MG Q6P PRN 03/11 1015 AC 03/13 PO 0923 Benztropine Mesylate 1 MG Q6P PRN 03/11 1015 AC PO Benztropine Mesylate 1 MG Q6P PRN 03/11 1015 AC IM Buprenorphine/ 1 TAB BID@0800,1700 03/14 0800 AC 03/14 Naloxone SL 03/15 0801 0938 Buprenorphine/ 1 TAB 2100 03/13 2100 DC 03/13 Naloxone SL 03/13 2101 2146 Buprenorphine/ 1 TAB BID@0800,1700 03/13 1700 DC Naloxone 03/15 0801 Clonidine 0.05 MG BID 03/14 0900 AC PO 03/15 0901 Clonidine 0.05 MG FOUR TIMES A DAY 03/12 1800 DC 03/13 PO 03/13 2355 2054 Clonidine 0.05 MG Q6P PRN 03/12 1615 AC PO Dicyclomine HCl 20 MG Q6P PRN 03/11 1015 AC PO Gabapentin 600 MG Q6P PRN 03/12 1145 AC 03/13 PO 1626 Haloperidol 5 MG Q6P PRN 03/11 1015 AC PO Haloperidol 5 MG Q6P PRN 03/11 1015 AC IM Ibuprofen 400 MG ONCE ONE 03/13 2145 DC 03/13 PO 07/14 2146 2145 Loperamide HCl 2 MG Q3P PRN 03/10 2230 AC PO Lorazepam 2 MG Q2 HRS NEEDED PRN 03/11 1330 AC PO Lorazepam 1 MG Q2 HRS NEEDED PRN 03/11 1330 AC PO Lorazepam 2 MG Q6P PRN 03/11 1015 AC IM Magnesium Hydroxide 30 ML AT BEDTIME NEED.. 03/11 1015 AC PO Multivitamins 1 TAB DAILY 03/11 1011 AC 03/14 PO 0937 Nicotine 2 MG Q2P PRN 03/14 1100 AC PO Nicotine 14 MG DAILY 03/11 1115 AC 03/13 TOP 0752 Trazodone HCl 50 MG AT BEDTIME NEED.. 03/11 1015 AC 03/14 PO 0003 Laboratory Tests 03/11 215 Toxicology Urine Opiates Screen (>2000 NG/ML) > 4000.00 H Methadone Screen (>300 NG/ML) 127 Barbiturate Screen (>200 NG/ML) < 60 Ur Phencyclidine Scrn (>25 NG/ML) < 6.00 Amphetamines Screen (>1000 NG/ML) < 100 U Benzodiazepines Scrn (>200 NG/ML) < 85 Urine Cocaine Screen (>300 NG/ML) 235 Urine Cannabis Screen (>50 NG/ML) < 5.00 Vital Signs Date Time Temp Pulse Resp B/P B/P Pulse O2 O2 Flow FiO2 Mean Ox Delivery Rate 03/14 0838 97.3 72 130/69 03/14 0759 97.3 72 130/69 03/13 2054 80 142/72 03/13 2002 99.1 80 142/72 03/13 195 99.1 80 142/72 03/13 1608 64 134/60 03/13 1602 64 134/60 03/13 1236 55 121/71 03/13 1230 55 121/71 MSE Appearance: as stated age Speech : nl rate, rhythm, volume and prosody Behavior: cooperative Motor: no psychomotor agitation or retardation Mood : alright Affect : non-labile, anxious, irritable, appropriate, constricted Thought process: linear and goal directed Thought content : no delusions or paranoia Perceptions: denied AVHs, denied SI or HI Insight: poor Judgment: poor A/P: Pt with unspecified depression with improved mood; underlying personality characteristics leading to intermittent inappropriate behaviors, though redirectable. Continue current medication regimen, added nicotine gum Encourage integration into the milieu
[2018-03-15 07:37] VITALS: BP 142/78
[2018-03-15 08:36] VITALS: BP 142/78
--- NOTE | 2018-03-15 09:48 | Patient Discharge Instructions ---
Psych Discharge Inst General Discharge Information Reason for Admission: Suicidal ideation, substance withdrawal. Psy Discharge Primary Diag+ Substance-induced mood disorder Psy Discharge Secondary Diag+ Opioid use disorder Cocaine use disorder Benzodiazepine use d/o Anemia Transminitis Summary Tests/Major Procedures Lab ALT 87 U/L H 03/10/182003 AST 43 U/L 03/10/182003 BUN 13 mg/dL 03/10/182003 Calcium 9.0 mg/dL 03/10/182003 Carbon Dioxide 30 mmol/L 03/10/182003 Chloride 98 mmol/L 03/10/182003 Creatinine 0.9 mg/dL 03/10/182003 Estimated GFR > 60 ml/min 03/10/182003 Glucose 97 mg/dL 03/10/182003 Potassium 4.2 mmol/L 03/10/182003 Sodium 139 mmol/L 03/10/182003 TSH &T3 &Free T4 Intrp 0.656 uIU/mL 03/10/182003 Absolute Monocytes 0.8 /CUMM H 03/10/182003 Hct 35.3 % L 03/10/182003 Hgb 12.0 G/DL L 03/10/182003 Monocytes % 10.6 % H 03/10/182003 Plt Count 214 /CUMM 03/10/182003 RBC 4.25 /CUMM L 03/10/182003 WBC 7.2 /CUMM 03/10/182003 Buprenorphine & Metab NEGATIVE 03/10/182206 Urine Cocaine Screen > 1000 NG/ML H 03/10/182206 Urine Cocaine Screen 235 NG/ML 03/11/182157 Urine Opiates Screen > 4000.00 NG/ML H 03/11/182157 EKG 03/11/18 showed sinus bradycardia @ 41, inferior Q waves, probably normal variation, nondiagnostic ST elevation, correlate with clinical data, slower rate since previous tracing, abnormal EKG, QT 464, QTc 384. Studies Pending at [place]: None. Patient Instructions Contact Information Your Psychiatrist on [facility] was Rodrigo Mcdonald MD * If you are experiencing an emergency related to this hospitalization, please call [phone] to contact the treating psychiatrist or the psychiatrist-on- call. * To Request a copy of your medical records, please contact the Medical Records Department at [phone]. * To request results of studies pending at the time of discharge, please call [phone]. * Continue your Medications until directed to stop by your Healthcare provider. General Medication Information Please continue to take your new medications and your continued home medications , unless otherwise indicated on your discharge medication list, or unless directed by your MD or COMMERCIAL PROPERTY MANAGER to stop them. Special Instructions Diet Regular Activity Normal Other Inst/Recommendations Stay C&S. See PCP about abnormal EKG and labs (copies provided). - Tobacco Use Treatment Offered Post DC Medications Offered: Script Given-See Med List Post DC Tobacco Treatment Plan: [facility] Appt Date: 03/24/18 Program Appt Time: 1600 - EtOH/Drug Use D/O Treatment Offered Post DC Medications Offered: Med Not Indicated for D/O Post DC EtOH/SubAbuse TX Plan: Other SubAbuse/Dual Pgm (APT [place]) Program Appt Date: 03/15/18 (Exact date TBA) Program Appt Time: 0946 (Exact time TBA) Metabolic Screening ([x]) Not Applicable, patient not on a neuroleptic. OR () Patient on a neuroleptic(s) . Enter below results for Hemoglobin A1C, and lipid panel if obtained during the last 365 days. BMI: 24.000 Blood Pressure: 142/78 Laboratory Results From [facility] (If applicable): Advance Directives Does the Patient have Medical Advance Directives No/Refused further info Does Pt have Psychiatric Advance Directives? No/Refused further info Does Patient have a Designated Surrogate Decision Maker: No Information About Psychiatric Advance Directives Provided? Yes Discharge Plan Post Hospital Treatment Plan: Will live with brother.
[2018-03-15] MEDS ORDERED: ONE DAILY MULT1 EAC2 PO (09:55)
[2018-03-15] MEDS ORDERED: TRAZODONE HCL50 M1 PO (09:55)
[2018-03-15] MEDS ORDERED: NICORELIEF2 MG PO (09:55)
--- NOTE | 2018-03-15 10:08 | SOCIAL WORKER PROG NOTE PSYCH ---
Social Work Progress Note Progress Note Pt states "I'm not a psych pt, I just have a drug problem". Pt requests to be discharged, offers he will attend walk in appointment at [facility] in [place], and he will take bus to his brother's house in [place]. Pt denies si/hi/ah/vh. Pt states "I was never suicidal, I just said that to get down here". Pt is aware he has referrals out to several rehabs and that he can call to follow up while in [facility]. Faxed Referral(s) Referred To: [facility] Transition of Care Documents sent: DC Instructions, Health Summary Faxed to: [facility] Fax #: [phone] Faxed by: Stella Higginbotham Date faxed: 03/15/18 Time Faxed: [phone]
--- NOTE | 2018-03-15 15:03 | CP SOUTH PROGRESS NOTE PSYCH ---
Psych (Inpt) Progress Note Progress Note Include the following elements, when applicable: Involvement in the active treatment of the patient with behavioral observations of the patient and the patient's response to the treatment. Review of the ongoing treatment process in the context of the treatment plan. Indication of how multi-disciplinary staff members are carrying out the treatment plan. Plans for future interventions and recommendations for revision of the treatment plan. Liaison with other physicians/providers. Progress Note: Dr. Ibarra's notes reviewed. Case and treatment plan discussed in team meeting. Denying suicidal ideation. Provocative and manipulative. Did not take Suboxone thus far this morning. Plans to go to [facility] and live with brother. Patient seen with outreach and education social worker, Stella. Feels "[as] good as it can get, I guess." Mood is tired. Affect is calm and blunted. Appears awake and alert. Rates sad mood an average of 8/10 always. Rates anxiety probably an 8 as well. Feels hopeless, helpless and worthless. Feels guilty for his past. Denies active and passive suicidal ideation. Denies homicidal ideation. Denies auditory and visual hallucinations. Reports paranoia of people back home and he states this is reality-based because of his bad decisions. Sleep: poor. Appetite: fair. Energy: poor. Tolerating medications well, without complaint. Denies withdrawal symptoms. Feels ready and safe for discharge. Plans to go to [facility] for a walk-in appointment. I discussed abnormal EKG with patient and to have follow up for it. He has a history of pericarditis. IMPRESSION: Condition improved. Okay for discharge today with plan as above.
--- NOTE | 2018-03-15 15:13 | DISCHARGE SUMMARY REPORT-PSYCH ---
Visit Information Visit Dates/Diagnosis' Admission Date: 03/10/18 Discharge Date: 03/15/18 Reason for Admission: Suicidal ideation, substance withdrawal. Psy Discharge Primary Diag: Substance-induced mood disorder Psy Discharge Secondary Diag: Opioid use disorder Cocaine use disorder Benzodiazepine use d/o Anemia Transminitis Hospital Course Significant Lab Findings: Lab ALT 87 U/L H 03/10/182003 AST 43 U/L 03/10/182003 BUN 13 mg/dL 03/10/182003 Calcium 9.0 mg/dL 03/10/182003 Carbon Dioxide 30 mmol/L 03/10/182003 Chloride 98 mmol/L 03/10/182003 Creatinine 0.9 mg/dL 03/10/182003 Estimated GFR > 60 ml/min 03/10/182003 Glucose 97 mg/dL 03/10/182003 Potassium 4.2 mmol/L 03/10/182003 Sodium 139 mmol/L 03/10/182003 TSH &T3 &Free T4 Intrp 0.656 uIU/mL 03/10/182003 Absolute Monocytes 0.8 /CUMM H 03/10/182003 Hct 35.3 % L 03/10/182003 Hgb 12.0 G/DL L 03/10/182003 Monocytes % 10.6 % H 03/10/182003 Plt Count 214 /CUMM 03/10/182003 RBC 4.25 /CUMM L 03/10/182003 WBC 7.2 /CUMM 03/10/182003 Buprenorphine & Metab NEGATIVE 03/10/182206 Urine Cocaine Screen > 1000 NG/ML H 03/10/182206 Urine Cocaine Screen 235 NG/ML 03/11/182157 Urine Opiates Screen > 4000.00 NG/ML H 03/11/182157 EKG 03/11/18 showed sinus bradycardia @ 41, inferior Q waves, probably normal variation, nondiagnostic ST elevation, correlate with clinical data, slower rate since previous tracing, abnormal EKG, QT 464, QTc 384. Course Complications: None. Consultations: Patient was seen by Dr. Larisa Nagy for admission H&P. Per her note of : "Assessment/Plan 27-year-old male past medical history of hepatitis C, active tobacco use and questionable hypertension who is here with depressive symptoms and requesting opiate detox. U tox is positive for cocaine and opiates and that treatment would be per psych. I will order nicotine patch as requested by the patient. His ALT is mildly elevated at this point and he doesn't need any active intervention. Please give him a referral to the [facility] practice clinic at [address] [place] [address] in [place] on discharge for primary care and hep C follow- up." Allergies: Coded Allergies: NO KNOWN ALLERGIES (NONE 03/12/18) Hospital Course/TX Response: The patient was monitored on the unit for safety, substance withdrawal and mood disorder. He participated in multi-modal treatments on the unit. He was detoxed with baclofen/Bentyl/clonidine and Suboxone. Prn Ativan was available based on CIWA scores. No standing psychiatric medicaitons were clearly indicated, so none were ordered. The patient was medication-seeking and manipulative at times. Mood and affect have improved. Suicidal ideation has remitted. Progress note from date of discharge, 03/15/18: "Dr. Ibarra's notes reviewed. Case and treatment plan discussed in team meeting. Denying suicidal ideation. Provocative and manipulative. Did not take Suboxone thus far this morning. Plans to go to [facility] and live with brother. Patient seen with social work coordinator, Stella. Feels "[as] good as it can get, I guess." Mood is tired. Affect is calm and blunted. Appears awake and alert. Rates sad mood an average of 8/10 always. Rates anxiety probably an 8 as well. Feels hopeless, helpless and worthless. Feels guilty for his past. Denies active and passive suicidal ideation. Denies homicidal ideation. Denies auditory and visual hallucinations. Reports paranoia of people back home and he states this is reality-based because of his bad decisions. Sleep: poor. Appetite: fair. Energy: poor. Tolerating medications well, without complaint. Denies withdrawal symptoms. Feels ready and safe for discharge. Plans to go to [facility] for a walk-in appointment. I discussed abnormal EKG with patient and to have follow up for it. He has a history of pericarditis. IMPRESSION: Condition improved. Okay for discharge today with plan as above." Discharge HBIPS - Tobacco Use Treatment Offered Post DC Medications Offered: Script Given-See Med List Post DC Tobacco Treatment Plan: [facility] Program Appt Date: 03/24/18 Program Appt Time: 1600 - EtOH/Drug Use D/O Treatment Offered Post DC Medications Offered: Med Not Indicated for D/O Post DC EtOH/SubAbuse TX Plan: Other SubAbuse/Dual Pgm ([facility]) Program Appt Date: 03/15/18 Program Appt Time: 1300 (walk-in) Metabolic Screening - Screen if on a Neuroleptic Medication - Metabolic screening should include: - Blood Pressure, BMI, Glucose or Hgb A1c, & a - Lipid profile from within the past 365 days. Metabolic Screening ([x]) Not Applicable, patient not on a neuroleptic. OR () Patient on a neuroleptic(s) . Enter below results for Hemoglobin A1C, and lipid panel if obtained during the last 365 days. BMI: 24.000 Blood Pressure: 142/78 Laboratory Results From [facility] EHR (If applicable): Discharge Instructions General Discharge Information Multiple Neuroleptics: ([x]) Not Applicable OR Document below three failed attempts at monotherapy, or a plan to taper to monotherapy, or augmentation of Clozapine. () Discharge Diet Regular Discharge Activity Normal DC Disposition: Plans to go to [facility] and live with brother. Patient is being referred for Primary Care regarding Hepatitis C and other medical issues to [facility], [facility], [address], [place], appointment on 03/16/18 at 11:30 a.m. Referrals Ordered Referrals Provider Referral 03/15/18 For Providers: [[place]] For Groups: [[facility]] Pt will attend a walk in appointment at the [facility] in [place]. [address] [facility] [phone] Prescriptions Stop taking the following medications: Ibuprofen (Advil Liqui-Gels) 200 MG CAPSULE ORAL DAILY Start taking the following new medications: Nicotine (Nicorelief) 2 MG GUM 1 Gum ORAL EVERY 2 HOURS NEEDED as needed for nicotine cravings Qty = 100 No Refills Comments: Last Taken:03/14/18 Time:1pm Trazodone HCl (Trazodone HCl) 50 MG TABLET 1 Tablet ORAL AT BEDTIME as needed for INSOMNIA Qty = 14 No Refills Comments: Last Taken:03/14/18 Time:10pm Multivitamin (One Daily Multivitamin) 1 EACH TABLET 1 Tablet ORAL DAILY Qty = 14 No Refills Comments: Last Taken:03/14/18 Time:9am Other Inst/Recommendations Stay C&S. See PCP about abnormal EKG and labs (copies provided). Studies Pending at Discharge None. [facility]; Virgen NICOLAS,Criselda
== END 2018-03-15 10:19 | DRG 773 ==
LOC: ERH 15:52 → CP SOUTH 21:40 → ERHI 21:40 → ENTRNSPT 22:49 → CP SOUTH 23:47 → CMPTRNSPT 23:50 → CP SOUTH 23:56
PROVIDERS: Emergency Medicine
DX: F19.94 Other psychoactive substance use, unspecified with psychoactive substance-induced mood disorder (principal); F11.90 Opioid use, unspecified, uncomplicated; F14.90 Cocaine use, unspecified, uncomplicated; F13.90 Sedative, hypnotic, or anxiolytic use, unspecified, uncomplicated; D64.9 Anemia, unspecified; R74.0 Nonspecific elevation of levels of transaminase and lactic acid dehydrogenase [LDH]
CPT/HCPCS: 80305; 80307; 93005; 93010; G0480; J0515; J1630